=== PATIENT | male | born 1945 | race Caucasian/White ===

== ENCOUNTER 2017-07-01 05:22 | Day surgery (SDC) | payer OTHER ==
[~2017-07-01] VITALS: Ht 193 cm; Wt 112.8 kg
--- NOTE | ~2017-07-01 | O ---
[facility] [place] [address] OPERATIVE REPORT Name: DEIDRA TABOR Room #: 150-2 [facility] M.R.#: [id number] Admission: 07/01/17 Attend Phys: Harjinder Cuevas Discharge: Date of : 43 Report #: [id number] THIS REPORT FOR: //name// CC: EILEEN physician/PCP Harjinder Hanson DATE OF SERVICE: 07/01/2017 PREOPERATIVE DIAGNOSES: Right shoulder pain, rotator cuff tear, biceps tendinopathy and impingement syndrome. POSTOPERATIVE DIAGNOSIS: Right shoulder rotator cuff tear, medium sized; long head of biceps tendon tear and subluxation; superior labral tear; intra-articular synovitis and subacromial bursitis. PROCEDURES PERFORMED: Right shoulder arthroscopy, rotator cuff repair, subacromial decompression, arthroscopic biceps tenodesis and extensive debridement. SURGEON: Harjinder Hanson M.D. [facility] DIRECTOR: None. ANESTHESIA: General per endotracheal tube with preoperative interscalene block, ultrasound guided. FLUIDS: 900 mL crystalloid. ESTIMATED BLOOD LOSS: Minimal. DESCRIPTION OF PROCEDURE: After proper identification of the patient and operative site in the preoperative holding area, the operative site was signed by myself. Prophylactic antibiotics given. The patient elected to receive an interscalene block after reviewing the risks, benefits, alternatives and potential complications with anesthesia. This was done under ultrasound guidance. The patient was brought back to the operative suite after induction of satisfactory general endotracheal anesthesia. The right shoulder was examined. It was stable throughout a full arc of motion, comparable to the preoperative assessment. The patient was carefully positioned in the left lateral decubitus position. Bah bag and extra roll were utilized to support the torso. The right shoulder was sterilely prepped and draped in the usual manner and placed in 10 pounds of balanced arthroscopic suspension. Posterior portal was established. Joint was inflated with an arthroscopic pump, set at 40 mmHg. Superior portal was created using a spinal needle for localization. Examination [facility] [address] [place] [address] OPERATIVE REPORT Name: DEIDRA TABOR Room #: 150-2 [facility] M.Charles.#: [id number] Admission: 07/01/17 Attend Phys: Harjinder Cuevas Discharge: Date of : 43 Report #: [id number] of the glenohumeral joint revealed some mild chondromalacia of the humeral head superiorly. This was more superficial and partial thickness in nature. Some of this frayed and fibrillated tissue was carefully debrided. There was a complex labral tear of the superior labrum that extended posteriorly. This also extended into the biceps tendon attachment. This was unstable. Long head demonstrated no tearing within the groove and the upper border of the subscapularis was intact. Tendon grafting stitch was applied and the remaining frayed superior labrum was carefully debrided. There was also evidence of a full-thickness supraspinatus rotator cuff tear. The arthroscope was then introduced in the subacromial space, where thickened subacromial bursa was encountered. This was excised with motorized shaver. There was fraying on the undersurface of the coracoacromial arch and prominence to the acromion was removed using a motorized bur. Approximately 3 mm of bone was resected. The rotator cuff tear was crescent shaped, nonretracted and approximately 15 mm in size. Greater tuberosity was prepared with combination of hand and motorized instrumentation. An additional lateral and posterolateral portal had been established. A single triple-loaded 4.75-mm SwiveLock anchor was utilized with two #2 FiberWires and a FiberTape. These were passed in a horizontal mattress fashion. The FiberWires were tied in a locking sliding knot backed up with alternating half hitches and a second SwiveLock anchor was placed more laterally based, creating a double row construct. Repair construct was stable. After probing, it was nicely reduced to the tuberosity. At this point, the lateral border of the bicipital groove was carefully opened. Ascending vessel was cauterized with the Arthrocare wand. Biceps tendon was delivered out of the anterolateral portal. Whipstitch was applied on its free end and the free end of the tendon that was frayed was debrided. This was then secured in the more proximal aspect of that groove, which had been fully released with an Arthrex proximal biceps tenodesis button. This had good fixation and the tendon was well seated within the groove and tied with alternating half hitches and was stable to probing. Subacromial space thoroughly irrigated with normal saline. Portals closed with simple nylon stitch. Sterile dressing was applied. He will be placed in a sling and abduction pillow for 6 weeks postoperatively. By: [id number] Harjinder Hanson MD /mary
--- NOTE | ~2017-07-01 | EKG ---
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1945 Requested By: Charleen Galvez Order Number: [id number] MD: Carson Beltran Measurements Intervals Cooper Rate: 65 P: 12 DC: 195 QRS: -31 QRSD: 118 T: 103 QT: 417 QTc: 434 Interpretive Statements Sinus rhythm Multiple premature complexes, vent & supraven Nonspecific intraventricular conduction delay Inferior infarct, old No previous ECG available for comparison Electronically Signed On 07-01-2017 8:34:48 CDT by Carson Beltran [email or web address] <ELECTRONICALLY SIGNED> By: Carson Beltran MD, [facility] 07/01/17 0834 3 Carson Beltran MD, [facility] /EPI
[~2017-07-01 05:22] MED LIST: ADVIL PM CAPLE1 EACH PO; ARIMIDEX PO; DHEA25 MG PO; EFFEXOR XR37.5 MG PO; FISH OIL 1,001000 M2 PO; MULTI VITAMIN1 EACH PO; NATURAL THYROID PO; OMEPRAZOLE 20 M20 M1 PO; PROSCAR 5MG TABL5 MG PO; SIMVASTATIN80 MG PO; TADALAFIL PO; VITAMIN B COMP1 EACH PO; VITAMIN C1000 MG PO; VITAMIN D1000 UNI1 PO; XARELTO20 MG PO
[2017-07-01 07:33] VITALS: BP 137/88
[2017-07-01 09:44] VITALS: BP 137/88
== END 2017-07-01 10:10 | disposition home or self-care (01) ==
LOC: OR 05:22 → TBA 05:24 → OR 09:35
DX: M75.101 Unspecified rotator cuff tear or rupture of right shoulder, not specified as traumatic (principal); S46.111A Strain of muscle, fascia and tendon of long head of biceps, right arm, initial encounter; S43.491A Other sprain of right shoulder joint, initial encounter; M65.811 Other synovitis and tenosynovitis, right shoulder; M94.211 Chondromalacia, right shoulder; M75.51 Bursitis of right shoulder; J44.9 Chronic obstructive pulmonary disease, unspecified; E78.5 Hyperlipidemia, unspecified; K21.9 Gastro-esophageal reflux disease without esophagitis; F41.8 Other specified anxiety disorders; F32.9 Major depressive disorder, single episode, unspecified; Z88.0 Allergy status to penicillin; Z91.041 Radiographic dye allergy status; Z98.890 Other specified postprocedural states; Z79.899 Other long term (current) drug therapy; X58.XXXA Exposure to other specified factors, initial encounter; Y93.89 Activity, other specified; Y92.89 Other specified places as the place of occurrence of the external cause; Y99.8 Other external cause status
CPT/HCPCS: 50010